=== PATIENT | male | born 1965 | race Caucasian/White ===

== ENCOUNTER 2021-12-12 10:29 | Inpatient (IN) ==
[2021-12-12] MEDS ORDERED: LACTULOSE 20 GM/30 ML UDCUP PO PRN (12:07)
[2021-12-12] MEDS ORDERED: DOCUSATE SODIUM 100 MG CAPSULE PO PRN (12:07)
[2021-12-12] MEDS ORDERED: GLUCAGON 1 MG VIAL IM PRN (12:17)
[2021-12-12] MEDS ORDERED: DEXTROSE 10% 250 ML BAG IV PRN (12:17)
[2021-12-12] MEDS: MORPHINE 2 MG/1 ML SYRINGE IV PRN ×3 (12:45→21:48)
[2021-12-12] MEDS: MORPHINE ER 15 MG TABLET PO SCH ×2 (13:44→21:00)
[2021-12-12] MEDS: oxyCODONE/ACETAMINOPHEN 5-325 MG TABLET PO PRN ×2 (14:47→20:19)
[2021-12-12] MEDS ORDERED: HYDROmorphone 1 MG/1 ML SYRINGE IV ONE (15:35)
[2021-12-12] MEDS: FAMOTIDINE 20 MG/2 ML VIAL IV SCH (15:53)
[2021-12-12] MEDS ORDERED: MORPHINE 2 MG/1 ML SYRINGE IM ONE (16:13)
[2021-12-12] MEDS ORDERED: MORPHINE 2 MG/1 ML SYRINGE IV ONE (16:13)
[2021-12-12] MEDS: ONDANSETRON 4 MG/2 ML VIAL IV PRN (19:17)
[2021-12-12] MEDS: PREGABALIN 25 MG CAPSULE PO SCH (21:00)
[2021-12-12] MEDS: INSULIN LISPRO 100 UNIT/ML SUBCUT SCH ×2 (21:01→21:19)
[2021-12-12] MEDS: APIXABAN 5 MG TABLET PO SCH (21:01)
[2021-12-12] MEDS: MELATONIN 3 MG TABLET PO PRN (21:43)
[2021-12-13] MEDS: MORPHINE 2 MG/1 ML SYRINGE IV PRN ×3 (00:59→06:26)
[2021-12-13] MEDS: FAMOTIDINE 20 MG/2 ML VIAL IV SCH ×2 (02:27→15:03)
[2021-12-13] MEDS: oxyCODONE/ACETAMINOPHEN 5-325 MG TABLET PO PRN ×3 (02:34→18:44)
[2021-12-13 05:02] LABS: Basophils % 0.4 % (0.0-0.8); Eosinophils # 0.1 10*3/uL (0.0-0.87); Eosinophils % 2.2 % (0.00-10.9); Hematocrit 36.7 VOL% (42.0-52.0); Hemoglobin 12.1 GM/DL (14.0-18.0); Immature Granulocytes % 0.2 %; Immature Granulocytes Absolute 0.01 #; Lymphocytes # 1.3 10*3/uL (1.4-4.0); Lymphocytes % 28.4 % (21.2-54.2); Mean Corpuscular Volume 91.3 FL (87-102); Monocytes # 0.5 10*3/uL (0.11-0.8); Monocytes % 10.9 % (1.7-12.7); Neutrophils % 57.9 % (38.7-73.9); Platelet Count 136 T/CUMM (130-400); Red Blood Count 4.02 MC/CUMM (3.8-5.5); Red Cell Distribution Width 15.3 % (9.3-17.3); White Blood Count 4.5 T/CUMM (4-12)
[2021-12-13 05:22] LABS: Calcium 9.5 MG/DL (8.5-10.1); Osmolality,Calculated 268.2 MOS/KG (273-304); Potassium 4.5 MMOL/L (3.5-5.1)
[2021-12-13] MEDS: ONDANSETRON 4 MG/2 ML VIAL IV PRN (06:24)
[2021-12-13] MEDS: INSULIN LISPRO 100 UNIT/ML SUBCUT SCH ×5 (07:32→20:39)
[2021-12-13] MEDS: APIXABAN 5 MG TABLET PO SCH ×3 (07:38→20:36)
[2021-12-13] MEDS: PREGABALIN 25 MG CAPSULE PO SCH ×2 (07:40→07:45)
[2021-12-13] MEDS: MORPHINE ER 15 MG TABLET PO SCH (07:42)
[2021-12-13] MEDS ORDERED: LORazepam 2 MG/1 ML VIAL IV ONE ×3 (08:22→10:48)
[2021-12-13] MEDS ORDERED: MORPHINE ER 15 MG TABLET PO ONE (08:55)
[2021-12-13] MEDS: LACTULOSE 20 GM/30 ML UDCUP PO SCH ×2 (13:16→20:37)
[2021-12-13] MEDS: HYDROmorphone 1 MG/1 ML SYRINGE IV PRN (14:08)
[2021-12-13] MEDS: LEVALBUTEROL 1.25 MG/3 ML NEB RESP TX PRN ×2 (16:40→21:27)
[2021-12-13] MEDS ORDERED: LEVALBUTEROL 1.25 MG/3 ML NEB RESP TX SCH (19:00)
[2021-12-13] MEDS: MORPHINE ER 30 MG TABLET PO SCH (20:36)
[2021-12-13] MEDS: PREGABALIN 50 MG CAPSULE PO SCH (20:37)
[2021-12-14] MEDS: HYDROmorphone 1 MG/1 ML SYRINGE IV PRN ×3 (03:53→14:42)
[2021-12-14] MEDS: FAMOTIDINE 20 MG/2 ML VIAL IV SCH ×2 (03:53→14:45)
[2021-12-14 05:16] LABS: Basophils % 0.2 % (0.0-0.8); Eosinophils # 0.1 10*3/uL (0.0-0.87); Eosinophils % 2.1 % (0.00-10.9); Hematocrit 38.3 VOL% (42.0-52.0); Hemoglobin 12.5 GM/DL (14.0-18.0); Immature Granulocytes % 0.2 %; Immature Granulocytes Absolute 0.01 #; Lymphocytes # 1.5 10*3/uL (1.4-4.0); Lymphocytes % 31.7 % (21.2-54.2); Mean Corpuscular HGB Conc 32.6 GM/DL (32-36); Mean Corpuscular Volume 93.4 FL (87-102); Mean Platelet Volume 10.1 FL (9.6-12.0); Monocytes # 0.5 10*3/uL (0.11-0.8); Neutrophils % 55.8 % (38.7-73.9); Platelet Count 137 T/CUMM (130-400); Red Cell Distribution Width 15.6 % (9.3-17.3); White Blood Count 4.8 T/CUMM (4-12)
[2021-12-14 05:28] LABS: Calcium 9.9 MG/DL (8.5-10.1); Osmolality,Calculated 268.4 MOS/KG (273-304); Potassium 4.5 MMOL/L (3.5-5.1)
[2021-12-14 05:36] LABS: Platelet Estimate Adequate
[2021-12-14] MEDS: INSULIN LISPRO 100 UNIT/ML SUBCUT SCH ×4 (07:34→20:44)
[2021-12-14] MEDS: LEVALBUTEROL 1.25 MG/3 ML NEB RESP TX PRN ×3 (08:38→21:18)
[2021-12-14] MEDS: LACTULOSE 20 GM/30 ML UDCUP PO SCH ×2 (08:40→20:43)
[2021-12-14] MEDS: MORPHINE ER 30 MG TABLET PO SCH ×3 (08:43→20:44)
[2021-12-14] MEDS: APIXABAN 5 MG TABLET PO SCH ×2 (08:44→20:43)
[2021-12-14] MEDS: PREGABALIN 50 MG CAPSULE PO SCH ×2 (08:45→20:43)
[2021-12-14] MEDS: oxyCODONE/ACETAMINOPHEN 5-325 MG TABLET PO PRN ×2 (12:28→22:15)
[2021-12-14] MEDS: clonazePAM 0.5 MG TABLET PO PRN (22:13)
[2021-12-15] MEDS: MELATONIN 3 MG TABLET PO PRN (00:07)
[2021-12-15] MEDS: oxyCODONE/ACETAMINOPHEN 5-325 MG TABLET PO PRN (03:52)
[2021-12-15] MEDS: FAMOTIDINE 20 MG/2 ML VIAL IV SCH (03:53)
[2021-12-15] MEDS: LEVALBUTEROL 1.25 MG/3 ML NEB RESP TX PRN ×2 (04:36→07:16)
[2021-12-15] MEDS: INSULIN LISPRO 100 UNIT/ML SUBCUT SCH ×2 (07:48→12:24)
[2021-12-15] MEDS: APIXABAN 5 MG TABLET PO SCH (08:43)
[2021-12-15] MEDS: MORPHINE ER 30 MG TABLET PO SCH (08:45)
[2021-12-15] MEDS: PREGABALIN 50 MG CAPSULE PO SCH (08:45)
[2021-12-15] MEDS: LACTULOSE 20 GM/30 ML UDCUP PO SCH (08:46)
[2021-12-15] MEDS: clonazePAM 0.5 MG TABLET PO PRN (11:10)
[2021-12-15 11:26] LABS: % Iron Saturation 12.8 % (18-50)
[2021-12-15 11:34] LABS: Folate 13.3 NG/ML (5.38-24.0)
[2021-12-15 13:36] VITALS: BP 149/90
== END 2021-12-15 13:10 | disposition home or self-care (01) | DRG 947 ==
LOC: N.2W → SUATTDRO 10:37 → N.TELES 12-13 15:56
PROVIDERS: ADMIT Internal Medicine; ATTEND Internal Medicine